=== PATIENT | female | born 1985 | race Caucasian/White ===

== ENCOUNTER 2018-11-21 18:26 | Outpatient (CLI) | payer OTHER, SELFPAY ==
[2018-11-21] MEDS: BETAMETHASONE 30 MG/5 ML MDV 12.5 MG IM (18:38)
== END 2018-11-21 18:44 | disposition home or self-care (01) ==
LOC: OB 02-05 15:10
PROVIDERS: PCP Obstetrics & Gynecology; Visit Provider Obstetrics & Gynecology
DX: Z34.93 Encounter for supervision of normal pregnancy, unspecified, third trimester (principal)
CPT/HCPCS: 96372; G0378; G0379; J0702

== ENCOUNTER 2019-01-12 08:50 | Emergency (ER) | payer OTHER, SELFPAY ==
[2019-01-12 09:01] VITALS: BP 122/95; PULSE 88; RESP 20; TEMP 36.7; O2SAT 98; BMI 30.7
--- NOTE | 2019-01-12 10:34 | ED.SKABFB ---
HPI - Skin/Abscess/Foreign Bdy General Chief complaint: Skin/Abscess/Foreign Body Stated complaint: CSECTION 5 WEEKS AGO,YELLOW DISCHARGE Time Seen by Provider: 01/12/19 10:15 Source: patient Mode of arrival: ambulatory Limitations: no limitations History of Present Illness HPI narrative: This is a pleasant 33-year-old female who is 5 weeks after a for triplets. Patient states that she has noticed a little bit of pain on the lateral edge of her incision on both sides but particularly on the left. She notices particularly when she urinates. She has a bowel movement she states she has very severe hemorrhoids so she is really notice if it hurts when she has a bowel movement. In the last several days she noticed that there seemed to be little spot that was open and when she pressed on it with some thick yellow fluid was not chunky but did not seem like thin clear fluid either. She did once again yesterday noticed a small amount of blood. Patient states that she has not had fevers, no chest pain or shortness of breath no nausea or vomiting no issues with urination and no issues with bowel movements other than hemorrhoids. She is otherwise healthy. Patient's triplets are all at home and she has 2 additional children at home. Related Data Home Medications Medication Instructions Recorded Confirmed PNV cmb#95-ferrous fumarate-FA 1 tab PO DAILY 01/12/19 01/12/19 [] Previous Rx's Medication Instructions Recorded cephalexin [Keflex] 500 mg PO QID 5 Days #20 cap 01/12/19 Allergies Allergy/AdvReac Type Severity Reaction Status Date / Time No Known Drug Allergies Allergy Verified 01/12/19 09:07 Review of Systems Review of Systems ROS Unobtainable: All systems reviewed & are unremarkable except as noted in HPI and below Constitutional Denies chills and Denies fever(s) Cardiovascular Denies chest pain and Denies dyspnea Respiratory Denies dyspnea Gastrointestinal Gastrointestinal: Denies abdominal pain, Denies change in bowel habits, Denies constipation, Denies diarrhea, Denies nausea, Denies vomiting and Reports other (hemorrhoids) Genitourinary Reports as per HPI, Reports abnormal vaginal bleeding (continued bleeding , not worsening.), Denies urinary frequency, Denies dysuria, Denies urinary hesitancy, Denies urinary urgency and Denies vaginal discharge Integumentary/Breasts Reports non-healing lesions, Denies unusual bruising and Reports other (drainage from incision) [facility] Surgical History (Updated 01/12/19 @ 10:47 by Ghazal Gillis DO) S/P (Chronic) Family History (Updated 04/27/16 @ 00:00 by Conversion Provider) Father Age: 62 Hypertension Grandfather Age: 89 Mental health problem Mother Age: 60 Hypertension Social History Smoking Status: Never smoker Family History (Updated 04/27/16 @ 00:00 by Conversion Provider) Father Age: 62 Hypertension Grandfather Age: 89 Mental health problem Mother Age: 60 Hypertension Social History Smoking Status: Never smoker Exam Narrative Exam Narrative: GENERAL: Alert and oriented x three, well-nourished, well-appearing female in no acute distress. HEENT: Head normocephalic, atraumatic, EOMI, pupils reactive, face symmetric, moist mucous membranes NECK: Supple, full range of motion CARDIOVASCULAR: Regular rate and rhythm without murmurs, rubs or gallops. RESPIRATORY: Breath sounds equal bilaterally, no wheezes rales or rhonchi. ABDOMEN: Soft, mildly tender in the left side of patient's incision, there is a punctate area of dehiscence with very localized erythema that is mild. There is no erythema extending elsewhere or along the rest of the incision. I am not able to express any fluid on exam. The dehiscence appears superficial. Normoactive bowel sounds all 4 quadrants. No guarding or rebound, rigidity, no mass : No CVA tenderness EXTREMITIES: Normal range of motion, no clubbing or edema. Neurovascularly intact NEUROLOGICAL: Cranial nerves II through XII grossly intact. Moving all extremities SKIN: Warm, dry, no petechiae, no rashes or lesions. Initial Vital Signs Initial Vital Signs: Vital Signs Temperature 98.0 F 01/12/19 09:01 Pulse Rate 88 01/12/19 09:01 Respiratory Rate 20 01/12/19 09:01 Blood Pressure 122/95 H 01/12/19 09:01 Pulse Oximetry 98 01/12/19 09:01 Course Orders Ordered: ED Orders 08/23/19 10:41 US pelvic limited Stat 01/12/19 11:02 Complete Blood Count AUTO DIFF Stat Comprehensive Metabolic Panel Stat Vital Signs - 8 hr 01/12/19 09:01 Temperature 98.0 F Pulse Rate 88 Respiratory Rate 20 Blood Pressure 122/95 H Pulse Oximetry 98 MDM - Skin/Abscess/Foreign Bdy Lab Data Attestation: I reviewed the patient's lab results. Result diagrams: 01/12/19 11:02 01/12/19 11:02 Lab Results 01/12/19 01/12/19 Range/Units 11:02 11:02 WBC 6.7 (4.5-11.0) X10^3/uL RBC 4.51 (4.0-5.2) X10^6/uL Hgb 11.9 L (12.0-16.0) g/dL Hct 35.9 L (36-46) % MCV 79.7 L (80-100) fL MCH 26.3 (26-34) PG MCHC 33.1 (30-36) % RDW 19.5 H (11.6-14.8) % Plt Count 235 (150-400) X10^3/uL Neut % (Auto) 65.3 (50-75) % Lymph % (Auto) 26.2 (25-40) % [place] % (Auto) 5.0 (3-14) % Eos % (Auto) 2.5 (2-4) % Baso % (Auto) 1.0 (0-2) % Neut # (Auto) 4400 (3437-4883) /uL Lymph # (Auto) 1700 (5541-3627) /uL [place] # (Auto) 300 (0-900) /uL Eos # (Auto) 200 (0-450) /uL Baso # (Auto) 100 (0-100) /uL Sodium 138 (137-145) mmol/L Potassium 4.3 (3.4-5.1) mmol/L Chloride 104 (98-107) mmol/L Carbon Dioxide 27 (22-32) mmol/L BUN 9 (7-17) mg/dL Creatinine 0.50 L (0.52-1.04) mg/dL Estimated GFR > 60.0 (>60) mL/min BUN/Creatinine Ratio 18.0 (6-22) Glucose 97 (70-100) mg/dL Calcium 9.1 (8.4-10.2) mg/dL Total Bilirubin 0.9 (0.2-1.3) mg/dL AST 19 (14-36) IU/L ALT 15 (9-52) IU/L Alkaline Phosphatase 104 (38-126) U/L Total Protein 7.4 (6.3-8.2) g/dL Albumin 4.1 (3.5-5.0) g/dL Globulin 3.3 (1.7-4.1) g/dL Albumin/Globulin Ratio 1.2 (1.0-2.8) Imaging Data pelvic US limited: Radiologist's impression: [address] [address] Ultrasound Report Signed Patient: Savage Orta#: [id number] : 1985Acct:[id number] Age/Sex: 33 / FDate of Service: 01/12/19 Loc: ED Accession Number: [id number] Procedure: US pelvic limited Ordering Provider: Ghazal Gillis D.O. PROCEDURE: US PELVIC LIMITED INDICATIONS: CONCERN FOR SEROMA VS. INFECTION OF CSECTION INCISION TECHNIQUE: Real-time transabdominal scanning was performed of the pelvic organs, with image documentation. COMPARISON: None. FINDINGS: Please note that the uterus and ovaries were not evaluated on this exam. Targeted sonographic imaging of the incision line of the lower anterior pelvis was performed. Mild focal subcutaneous edema is identified at the site of the incision with slight increased vascularity without a drainable fluid collection evident. No definable fluid collection is evident. IMPRESSION: Minimal edema at the site of the incision without a definite abscess evident. The need for follow up imaging may be determined clinically. Dictated by: Bradley Freeman M.D. on 01/12/2019 at 11:11 Approved by: Bradley Freeman M.D. on 01/12/2019 at 11:14 MDM Narrative Medical decision making narrative: Patient does not have any discrete fluid collections. She had has a small area of wound dehiscence. There is no signs of fluid collection on ultrasound We discussed wound care, she has follow-up on Tuesday which is in 2-4 days. To keep her appointment. If she feels like it is worsening at all to go ahead and start antibiotics and continue with current care regimen. If patient has worsening symptoms she is to return for re-evaluation. Discharge Plan Departure Patient Disposition: Home Clinical Impression: Dehiscence of section wound, Instructions: DI for Wound Dehiscence Activity Restrictions/Additional Instructions: Follow up with your OBGYN at your appointment on Tuesday. Continue to keep area clean dry and monitor for any signs of infection. Prescription for Keflex was sent to [facility] in [place]. You may start this medication in the next 24 hours if symptoms are worsening. Return to the emergency department for fevers greater than a 100.4 F, rapidly worsening redness, swelling increasing drainage, increasing pain in the abdomen, persistent vomiting, issues with bowel movements or urination or other new or concerning symptoms. Prescriptions: New cephalexin [Keflex] 500 mg capsule 500 mg PO QID 5 Days Qty: 20 RF: 0 No Action PNV cmb#95-ferrous fumarate-FA [] 28 mg iron- 800 mcg Tablet 1 tab PO DAILY RF: 0 Referrals: Preeti Mueller MD [Primary Care Provider] -
--- NOTE | 2019-01-12 10:41 | DI.US.S_ITS ---
PROCEDURE: US PELVIC LIMITED INDICATIONS: CONCERN FOR SEROMA VS. INFECTION OF CSECTION INCISION TECHNIQUE: Real-time transabdominal scanning was performed of the pelvic organs, with image documentation. COMPARISON: None. FINDINGS: Please note that the uterus and ovaries were not evaluated on this exam. Targeted sonographic imaging of the incision line of the lower anterior pelvis was performed. Mild focal subcutaneous edema is identified at the site of the incision with slight increased vascularity without a drainable fluid collection evident. No definable fluid collection is evident. IMPRESSION: Minimal edema at the site of the incision without a definite abscess evident. The need for follow up imaging may be determined clinically. Dictated by: Bradley Freeman M.D. on 01/12/2019 at 11:11 Approved by: Bradley Freeman M.D. on 01/12/2019 at 11:14
--- NOTE | 2019-01-12 10:45 | ED_ITS ---
HPI - Skin/Abscess/Foreign Bdy General Chief complaint: Skin/Abscess/Foreign Body Stated complaint: CSECTION 5 WEEKS AGO,YELLOW DISCHARGE Time Seen by Provider: 01/12/19 10:15 Source: patient Mode of arrival: ambulatory Limitations: no limitations History of Present Illness HPI narrative: This is a pleasant 33-year-old female who is 5 weeks after a for triplets. Patient states that she has noticed a little bit of pain on the lateral edge of her incision on both sides but particularly on the left. She notices particularly when she urinates. She has a bowel movement she states she has very severe hemorrhoids so she is really notice if it hurts when she has a bowel movement. In the last several days she noticed that there seemed to be little spot that was open and when she pressed on it with some thick yellow fluid was not chunky but did not seem like thin clear fluid either. She did once again yesterday noticed a small amount of blood. Patient states that she has not had fevers, no chest pain or shortness of breath no nausea or vomiting no issues with urination and no issues with bowel movements other than hemorrhoids. She is otherwise healthy. Patient's triplets are all at home and she has 2 additional children at home. Related Data Home Medications Medication Instructions Recorded Confirmed PNV cmb#95-ferrous fumarate-FA 1 tab PO DAILY 01/12/19 01/12/19 [] Previous Rx's Medication Instructions Recorded cephalexin [Keflex] 500 mg PO QID 5 Days #20 cap 01/12/19 Allergies Allergy/AdvReac Type Severity Reaction Status Date / Time No Known Drug Allergies Allergy Verified 01/12/19 09:07 Review of Systems Review of Systems ROS Unobtainable: All systems reviewed & are unremarkable except as noted in HPI and below Constitutional Denies chills and Denies fever(s) Cardiovascular Denies chest pain and Denies dyspnea Respiratory Denies dyspnea Gastrointestinal Gastrointestinal: Denies abdominal pain, Denies change in bowel habits, Denies constipation, Denies diarrhea, Denies nausea, Denies vomiting and Reports other (hemorrhoids) Genitourinary Reports as per HPI, Reports abnormal vaginal bleeding (continued bleeding , not worsening.), Denies urinary frequency, Denies dysuria, Denies urinary hesitancy, Denies urinary urgency and Denies vaginal discharge Integumentary/Breasts Reports non-healing lesions, Denies unusual bruising and Reports other (drainage from incision) [facility] Surgical History (Updated 01/12/19 @ 10:47 by Ghazal Gillis DO) S/P (Chronic) Family History (Updated 04/27/16 @ 00:00 by Conversion Provider) Father Age: 62 Hypertension Grandfather Age: 89 Mental health problem Mother Age: 60 Hypertension Social History Smoking Status: Never smoker Family History (Updated 04/27/16 @ 00:00 by Conversion Provider) Father Age: 62 Hypertension Grandfather Age: 89 Mental health problem Mother Age: 60 Hypertension Social History Smoking Status: Never smoker Exam Narrative Exam Narrative: GENERAL: Alert and oriented x three, well-nourished, well- appearing female in no acute distress. HEENT: Head normocephalic, atraumatic, EOMI, pupils reactive, face symmetric, moist mucous membranes NECK: Supple, full range of motion CARDIOVASCULAR: Regular rate and rhythm without murmurs, rubs or gallops. RESPIRATORY: Breath sounds equal bilaterally, no wheezes rales or rhonchi. ABDOMEN: Soft, mildly tender in the left side of patient's incision, there is a punctate area of dehiscence with very localized erythema that is mild. There is no erythema extending elsewhere or along the rest of the incision. I am not able to express any fluid on exam. The dehiscence appears superficial. Normoactive bowel sounds all 4 quadrants. No guarding or rebound, rigidity, no mass : No CVA tenderness EXTREMITIES: Normal range of motion, no clubbing or edema. Neurovascularly intact NEUROLOGICAL: Cranial nerves II through XII grossly intact. Moving all extremities SKIN: Warm, dry, no petechiae, no rashes or lesions. Initial Vital Signs Initial Vital Signs: Vital Signs Temperature 98.0 F 01/12/19 09:01 Pulse Rate 88 01/12/19 09:01 Respiratory Rate 20 01/12/19 09:01 Blood Pressure 122/95 H 01/12/19 09:01 Pulse Oximetry 98 01/12/19 09:01 Course Orders Ordered: ED Orders 08/23/19 10:41 US pelvic limited Stat 01/12/19 11:02 Complete Blood Count AUTO DIFF Stat Comprehensive Metabolic Panel Stat Vital Signs - 8 hr 01/12/19 09:01 Temperature 98.0 F Pulse Rate 88 Respiratory Rate 20 Blood Pressure 122/95 H Pulse Oximetry 98 MDM - Skin/Abscess/Foreign Bdy Lab Data Attestation: I reviewed the patient's lab results. Result diagrams: 01/12/19 11:02 01/12/19 11:02 Lab Results 01/12/19 01/12/19 Range/Units 11:02 11:02 WBC 6.7 (4.5-11.0) X10^3/uL RBC 4.51 (4.0-5.2) X10^6/uL Hgb 11.9 L (12.0-16.0) g/dL Hct 35.9 L (36-46) % MCV 79.7 L (80-100) fL MCH 26.3 (26-34) PG MCHC 33.1 (30-36) % RDW 19.5 H (11.6-14.8) % Plt Count 235 (150-400) X10^3/uL Neut % (Auto) 65.3 (50-75) % Lymph % (Auto) 26.2 (25-40) % [place] % (Auto) 5.0 (3-14) % Eos % (Auto) 2.5 (2-4) % Baso % (Auto) 1.0 (0-2) % Neut # (Auto) 4400 (8977-4194) /uL Lymph # (Auto) 1700 (9334-7235) /uL [place] # (Auto) 300 (0-900) /uL Eos # (Auto) 200 (0-450) /uL Baso # (Auto) 100 (0-100) /uL Sodium 138 (137-145) mmol/L Potassium 4.3 (3.4-5.1) mmol/L Chloride 104 (98-107) mmol/L Carbon Dioxide 27 (22-32) mmol/L BUN 9 (7-17) mg/dL Creatinine 0.50 L (0.52-1.04) mg/dL Estimated GFR > 60.0 (>60) mL/min BUN/Creatinine Ratio 18.0 (6-22) Glucose 97 (70-100) mg/dL Calcium 9.1 (8.4-10.2) mg/dL Total Bilirubin 0.9 (0.2-1.3) mg/dL AST 19 (14-36) IU/L ALT 15 (9-52) IU/L Alkaline Phosphatase 104 (38-126) U/L Total Protein 7.4 (6.3-8.2) g/dL Albumin 4.1 (3.5-5.0) g/dL Globulin 3.3 (1.7-4.1) g/dL Albumin/Globulin Ratio 1.2 (1.0-2.8) Imaging Data pelvic US limited: Radiologist's impression: [address] [address] Ultrasound Report Signed Patient: Savage Orta#: [id number] : 1985Acct:[id number] Age/Sex: 33 / FDate of Service: 01/12/19 Loc: ED Accession Number: [id number] Procedure: US pelvic limited Ordering Provider: Ghazal Gillis D.O. PROCEDURE: US PELVIC LIMITED INDICATIONS: CONCERN FOR SEROMA VS. INFECTION OF CSECTION INCISION TECHNIQUE: Real-time transabdominal scanning was performed of the pelvic organs, with image documentation. COMPARISON: None. FINDINGS: Please note that the uterus and ovaries were not evaluated on this exam. Targeted sonographic imaging of the incision line of the lower anterior pelvis was performed. Mild focal subcutaneous edema is identified at the site of the incision with slight increased vascularity without a drainable fluid collection evident. No definable fluid collection is evident. IMPRESSION: Minimal edema at the site of the incision without a definite abscess evident. The need for follow up imaging may be determined clinically. Dictated by: Bradley Freeman M.D. on 01/12/2019 at 11:11 Approved by: Bradley Freeman M.D. on 01/12/2019 at 11:14 MDM Narrative Medical decision making narrative: Patient does not have any discrete fluid collections. She had has a small area of wound dehiscence. There is no signs of fluid collection on ultrasound We discussed wound care, she has follow-up on Tuesday which is in 2-4 days. To keep her appointment. If she feels like it is worsening at all to go ahead and start antibiotics and continue with current care regimen. If patient has worsening symptoms she is to return for re- evaluation. Discharge Plan Departure Patient Disposition: Home Clinical Impression: Dehiscence of section wound, Instructions: DI for Wound Dehiscence Activity Restrictions/Additional Instructions: Follow up with your OBGYN at your appointment on Tuesday. Continue to keep area clean dry and monitor for any signs of infection. Prescription for Keflex was sent to [facility] in [place]. You may start this medication in the next 24 hours if symptoms are worsening. Return to the emergency department for fevers greater than a 100.4 F, rapidly worsening redness, swelling increasing drainage, increasing pain in the abdomen, persistent vomiting, issues with bowel movements or urination or other new or concerning symptoms. Prescriptions: New cephalexin [Keflex] 500 mg capsule 500 mg PO QID 5 Days Qty: 20 RF: 0 No Action PNV cmb#95-ferrous fumarate-FA [] 28 mg iron- 800 mcg Tablet 1 tab PO DAILY RF: 0 Referrals: Preeti Mueller MD [Primary Care Provider] -
[2019-01-12 11:13] LABS: Add Manual Diff / Slide Review NO; Basophils Absolute Auto 100 /uL (0-100); Eosinophils Absolute Auto 200 /uL (0-450); Eosinophils Percent Auto 2.5 % (2-4); Hematocrit 35.9 % (36-46); Hemoglobin 11.9 g/dL (12.0-16.0); Lymphocytes Absolute Auto 1700 /uL (1100-4500); Lymphocytes Percent Auto 26.2 % (25-40); Mean Corpuscular HGB Conc 33.1 % (30-36); Mean Corpuscular Hemoglobin 26.3 PG (26-34); Mean Corpuscular Volume 79.7 fL (80-100); Monocytes Absolute Auto 300 /uL (0-900); Neutrophils Absolute Auto 4400 /uL (1500-7000); Neutrophils Percent Auto 65.3 % (50-75); Platelet Count 235 X10^3/uL (150-400); Red Blood Cell Count 4.51 X10^6/uL (4.0-5.2); Red Cell Distribution Width 19.5 % (11.6-14.8); White Blood Cell Count 6.7 X10^3/uL (4.5-11.0)
[2019-01-12 11:22] LABS: Alanine Aminotransferase 15 IU/L (9-52); Albumin 4.1 g/dL (3.5-5.0); Albumin Globulin Ratio 1.2 (1.0-2.8); Alkaline Phosphatase 104 U/L (38-126); Aspartate Aminotransferase 19 IU/L (14-36); Bilirubin Total 0.9 mg/dL (0.2-1.3); Blood Urea Nitrogen 9 mg/dL (7-17); Calcium 9.1 mg/dL (8.4-10.2); Carbon Dioxide 27 mmol/L (22-32); Chloride 104 mmol/L (98-107); Estimated Glomerular Filt Rate > 60.0 mL/min (>60); Globulin 3.3 g/dL (1.7-4.1); Glucose 97 mg/dL (70-100); HEMOLYSIS < 15 (0-50); Potassium 4.3 mmol/L (3.4-5.1); Sodium 138 mmol/L (137-145); Total Protein 7.4 g/dL (6.3-8.2)
[2019-01-12 12:35] VITALS: BP 128/84; PULSE 81; RESP 16; O2SAT 98
== END 2019-01-12 12:35 | disposition home or self-care (01) ==
PROVIDERS: Emergency Provider Emergency Medicine; PCP Obstetrics & Gynecology
DX: O90.0 Disruption of cesarean delivery wound (principal)
CPT/HCPCS: 36415; 76857; 80053; 85025; 99282; 99284

== ENCOUNTER → 2019-04-04 11:47 | Outpatient (CLI) | payer OTHER, SELFPAY ==
--- NOTE | 2019-04-04 11:50 | DI.MRI.S_ITS ---
PROCEDURE: MR SHOULDER RT WO CON INDICATIONS: RIGHT shoulder pain TECHNIQUE: Noncontrast oblique coronal T2 fast spin echo with fat saturation, oblique sagittal T1 spin echo and T2 fast spin echo with fat saturation, axial T1 spin echo and T2 fast spin echo with fat saturation through the shoulder. COMPARISON: None. FINDINGS: Image quality: Excellent. Rotator cuff: There is tendinosis and low grade articular and bursal surface partial-thickness tear involving distal supraspinatus at its insertion the humeral head extending to the musculotendinous junction. Distal infraspinatus tendinosis and low-grade bursal surface partial-thickness tear is also seen. Distal subscapularis tendon is intact. Sagittal images demonstrate no significant muscle atrophy. Bones and bursae: No bone marrow contusions or fractures. Very mild osteophytic changes in acromioclavicular joint are seen. Capsule and soft tissues: In the absence of intra-articular contrast, the labrum and glenohumeral ligaments appear intact. The long head of the biceps tendon demonstrates normal location and morphology. The rotator interval appears normal, without fibrosis. The coracohumeral ligament is normal in thickness. IMPRESSION: 1. Very mild acromioclavicular joint osteoarthritic changes. 2. Tendinosis and low-grade articular and bursal surface partial-thickness tear involving distal supraspinatus extending to musculotendinous junction. Tendinosis and low-grade bursal surface partial-thickness tear involving distal infraspinatus. 3. No gross focal labral tear. Dictated by: Kevin Choi M.D. on 04/04/2019 at 15:08 Approved by: Kevin Choi M.D. on 04/04/2019 at 15:11
== END ==
PROVIDERS: Family Provider Family Medicine; PCP Family Medicine; Visit Provider Physician Assistant
DX: M25.511 Pain in right shoulder (principal); M75.111 Incomplete rotator cuff tear or rupture of right shoulder, not specified as traumatic
CPT/HCPCS: 73221

== ENCOUNTER 2020-06-23 09:26 | Emergency (ER) | payer BC, SELFPAY ==
[2020-06-23 09:39] VITALS: BP 115/74; PULSE 86; RESP 27; TEMP 36.6; O2SAT 99
--- NOTE | 2020-06-23 09:39 | DI.RAD.S_ITS ---
PROCEDURE: XR CHEST 2V INDICATIONS: shortness of breath TECHNIQUE: 2 views of the chest were acquired. COMPARISON: None. FINDINGS: Surgical changes and devices: None. Lungs and pleura: Mildly increased bronchovascular markings in hilar region are seen with mild bronchial wall thickening. No focal infiltrate. No pleural effusions or pneumothorax. Mediastinum: Mediastinal contours are normal. Heart size is normal. Bones and chest wall: No suspicious bony abnormalities. Soft tissues appear unremarkable. IMPRESSION: Finding is suggestive of reactive airway disease. No focal infiltrate. No pleural effusion or pneumothorax. Dictated by: Kevin Choi M.D. on 06/23/2020 at 9:11 Approved by: Kevin Choi M.D. on 06/23/2020 at 9:15
--- NOTE | 2020-06-23 09:56 | ED.GENADULT ---
HPI - General Adult General Chief complaint: Shortness of Breath/Dyspnea Stated complaint: hard time breathing/anxiety Time Seen by Provider: 06/23/20 09:42 Source: patient Mode of arrival: Ambulatory Limitations: no limitations History of Present Illness HPI narrative: Patient is a 34-year-old female. History of anxiety and panic attacks. Does not take any medications for these here for evaluation of 3 days of shortness of breath and chest pressure. She states she has had a consistently for the past 3 days. Nothing makes it better. Nothing makes it worse. She did try some meditation without any improvement. She states that there breathing feels like a lead up to a panic attack however she does not feel like this is a full-blown panic attack. It did start approximately 50 minutes after eating something on Tuesday. No lower extremity swelling. No recent travel. Not on control. Related Data Home Medications Medication Instructions Recorded Confirmed No Known Home Medications 06/23/20 06/23/20 Allergies Allergy/AdvReac Type Severity Reaction Status Date / Time No Known Drug Allergies Allergy Verified 06/23/20 09:46 Review of Systems Constitutional Constitutional: Denies fever(s) Cardiovascular Cardiovascular: Denies rapid heart rate, Denies lightheadedness and Reports dyspnea Comments: Chest pressure Respiratory Respiratory: Denies cough and Reports dyspnea Gastrointestinal Gastrointestinal: Denies abdominal pain, Denies nausea and Denies vomiting Genitourinary Genitourinary: Denies dysuria Genitourinary: Denies dysuria Musculoskeletal Musculoskeletal: Denies arthralgias and Denies myalgias Integumentary/Breasts Skin/Breast: Denies rash Neurologic Neurologic: Denies behavioral changes Psychiatric Psychiatric: Denies behavioral changes Hematologic/Lymphatic On Anticoagulants: No Allergic/Immunologic Allergic/Immunologic: Denies urticaria Patient History Medical History Anxiety Bleeding in early Surgical History (Updated 01/12/19 @ 10:47 by Ghazal Gillis DO) S/P Family History (Updated 04/27/16 @ 00:00 by Conversion Provider) Father Age: 64 Hypertension Grandfather Age: 91 Mental health problem Mother Age: 62 Hypertension Social History Smoking Status: Never smoker Smoking Status: Never smoker alcohol intake frequency: 0-2 drinks per day Substance Use Type: does not use Exam Initial Vital Signs Initial Vital Signs: Vital Signs Temperature 97.8 F 06/23/20 09:39 Pulse Rate 86 06/23/20 09:39 Respiratory Rate 27 H 06/23/20 09:39 Blood Pressure 115/74 06/23/20 09:39 Pulse Oximetry 99 06/23/20 09:39 Const General: cooperative and comfortable Limitations: mental status not altered HENMT Head: normal to inspection and normocephalic Resp Effort & Inspection: normal respiratory effort and tachypneic Auscultation: clear to auscultation bilaterally Cardio Rate: regular rate Rhythm: regular rhythm GI Inspection: non-distended Palpation: soft Skin Lesions: no lesions Rashes: no rashes Neuro General: patient alert, patient awake and patient oriented x3 Cognition: normal cognition Speech: speech normal Extrem General: normal to inspection and capillary refill normal Psych Appearance: grossly normal and well kempt Course Orders Ordered: ED Orders 06/23/20 09:39 XR chest 2V Stat EKG-12 Lead Stat Measure peak expiratory flow ONCE RT Consult Eval and Treat Now 06/23/20 10:40 Complete Blood Count AUTO DIFF Stat Comprehensive Metabolic Panel Stat D Dimer Stat Lactate (Lactic Acid) Stat NT-proBNP (BNP-Adult 18+) Stat Test Serum,Qual Stat 06/23/20 10:45 COVID19 Stat 06/23/20 11:20 CT angio chest PE protocol Stat Discontinued Medications Lorazepam (Lorazepam 0.5 Mg Tablet) 1 mg PO NOW ONE Stop: 06/23/20 10:21 Last Admin: 06/23/20 11:07 Dose: 1 mg Documented by: PAMELA Vital Signs Vital signs: Vital Signs - 8 hr 06/23/20 11:53 06/23/20 11:54 06/23/20 12:00 Pulse Rate 85 74 82 Blood Pressure 107/68 109/70 Pulse Oximetry 95 99 97 Medical Decision Making Lab Data Lab results reviewed: Yes I reviewed the patient's lab results. Result diagrams: 06/23/20 10:40 06/23/20 10:40 Labs: Lab Results 06/23/20 06/23/20 06/23/20 Range/Units 10:40 10:40 10:40 WBC 5.6 (4.5-11.0) X10^3/uL RBC 4.84 (4.0-5.2) X10^6/uL Hgb 12.8 (12.0-16.0) g/dL Hct 39.0 (36-46) % MCV 80.5 (80-100) fL MCH 26.4 (26-34) PG MCHC 32.8 (30-36) % RDW 14.9 H (11.6-14.8) % Plt Count 328 (150-400) X10^3/uL Neut % (Auto) 66.9 (50-75) % Lymph % (Auto) 24.5 L (25-40) % [place] % (Auto) 5.8 (3-14) % Eos % (Auto) 1.9 L (2-4) % Baso % (Auto) 0.9 (0-2) % Neut # (Auto) 3700 (6639-2312) /uL Lymph # (Auto) 1400 (9444-9305) /uL [place] # (Auto) 300 (0-900) /uL Eos # (Auto) 100 (0-450) /uL Baso # (Auto) 0 (0-100) /uL D-Dimer (<230) ng/mL Sodium 139 (137-145) mmol/L Potassium 3.7 (3.4-5.1) mmol/L Chloride 101 (98-107) mmol/L Carbon Dioxide 28 (22-32) mmol/L BUN 17 (7-17) mg/dL Creatinine 0.61 (0.52-1.04) mg/dL Estimated GFR > 60.0 (>60) mL/min BUN/Creatinine Ratio 27.9 H (6-22) Glucose 105 H (70-100) mg/dL Lactate 0.9 (0.7-2.1) mmol/L Calcium 9.9 (8.4-10.2) mg/dL Total Bilirubin 1.2 (0.2-1.3) mg/dL AST 33 (14-36) IU/L ALT 18 (<35) IU/L Alkaline Phosphatase 80 (38-126) U/L NT-Pro-B Natriuret Pep 23 (<125) pg/mL Total Protein 8.6 H (6.3-8.2) g/dL Albumin 4.9 (3.5-5.0) g/dL Globulin 3.7 (1.7-4.1) g/dL Albumin/Globulin Ratio 1.3 (1.0-2.8) Serum , Qual (Negative) SARS-CoV-2 (PCR) (Negative) 06/23/20 06/23/20 06/23/20 Range/Units 10:40 10:40 10:45 WBC (4.5-11.0) X10^3/uL RBC (4.0-5.2) X10^6/uL Hgb (12.0-16.0) g/dL Hct (36-46) % MCV (80-100) fL MCH (26-34) PG MCHC (30-36) % RDW (11.6-14.8) % Plt Count (150-400) X10^3/uL Neut % (Auto) (50-75) % Lymph % (Auto) (25-40) % [place] % (Auto) (3-14) % Eos % (Auto) (2-4) % Baso % (Auto) (0-2) % Neut # (Auto) (7185-0318) /uL Lymph # (Auto) (3596-0695) /uL [place] # (Auto) (0-900) /uL Eos # (Auto) (0-450) /uL Baso # (Auto) (0-100) /uL D-Dimer 254 H (<230) ng/mL Sodium (137-145) mmol/L Potassium (3.4-5.1) mmol/L Chloride (98-107) mmol/L Carbon Dioxide (22-32) mmol/L BUN (7-17) mg/dL Creatinine (0.52-1.04) mg/dL Estimated GFR (>60) mL/min BUN/Creatinine Ratio (6-22) Glucose (70-100) mg/dL Lactate (0.7-2.1) mmol/L Calcium (8.4-10.2) mg/dL Total Bilirubin (0.2-1.3) mg/dL AST (14-36) IU/L ALT (<35) IU/L Alkaline Phosphatase (38-126) U/L NT-Pro-B Natriuret Pep (<125) pg/mL Total Protein (6.3-8.2) g/dL Albumin (3.5-5.0) g/dL Globulin (1.7-4.1) g/dL Albumin/Globulin Ratio (1.0-2.8) Serum , Qual Negative (Negative) SARS-CoV-2 (PCR) Negative (Negative) Imaging Data Chest x-ray: Radiologist's Impression: [address] [id number] ReportSigned Patient: Savage Orta#: [id number]: 1985Acct:[id number]/Sex: 34 / FDate of Service: 06/23/20Loc: EDAccession Number: [id number] Procedure: XR chest 2V Ordering Provider: Radames Landis D.O. PROCEDURE: XR CHEST 2V INDICATIONS: shortness of breath TECHNIQUE: 2 views of the chest were acquired. COMPARISON: None. FINDINGS: Surgical changes and devices: None. Lungs and pleura: Mildly increased bronchovascular markings in hilar region are seen with mild bronchial wall thickening. No focal infiltrate. No pleural effusions or pneumothorax. Mediastinum: Mediastinal contours are normal. Heart size is normal. Bones and chest wall: No suspicious bony abnormalities. Soft tissues appear unremarkable. IMPRESSION: Finding is suggestive of reactive airway disease. No focal infiltrate. No pleural effusion or pneumothorax. Dictated by: Kevin Choi M.D. on 06/23/2020 at 9:11 Approved by: Kevin Choi M.D. on 06/23/2020 at 9:15 CT scan - chest: Radiologist's Impression: [address] [id number] Scan ReportSigned Patient: Savage Orta#: [id number]: 1985Acct:[id number]/Sex: 34 / FDate of Service: 06/23/20Loc: EDAccession Number: [id number] Procedure: CT angio chest PE protocol Ordering Provider: Radames Landis D.O. PROCEDURE: CT ANGIO CHEST PE PROTOCOL INDICATIONS: Chest pain, shortness of breath, tachycardia TECHNIQUE: After the administration of intravenous contrast, 2 mm thick sections acquired from the pulmonary apices to the posterior costophrenic angles. 3-dimensional maximum intensity projection (MIP) coronal and sagittal reformats were then acquired through the thorax. For radiation dose reduction, the following was used: automated exposure control, adjustment of mA and/or kV according to patient size. COMPARISON: None. FINDINGS: Image quality: Excellent. Pulmonary arteries: Pulmonary arteries are normal in size, and demonstrate no intraluminal filling defects to suggest central pulmonary embolism. Lungs and pleura: Lungs are clear. No pleural effusions or pneumothorax. Central and peripheral airways are patent. Mediastinum: Heart size is normal, without pericardial effusion. No mediastinal or hilar adenopathy. Thoracic aorta is normal in caliber and enhancement. Esophagus is normal in caliber, without hiatal hernia. Bones and chest wall: No suspicious bony lesions. Ribs and thoracic spine appear intact throughout. Thyroid is grossly unremarkable No axillary or supraclavicular adenopathy. Abdomen: Subcentimeter hepatic foci are statistically cysts or hemangiomas, although technically too small to characterize accurately and therefore nonspecific. IMPRESSION: No evidence of pulmonary embolism. No aortic dissection identified. No acute consolidation Dictated by: Severiano Snowden M.D. on 06/23/2020 at 12:09 Approved by: Severiano Snowden M.D. on 06/23/2020 at 12:11 ECG Data Attestation: I personally reviewed and interpreted this ECG as follows: Prior ECG tracings: not available for review Interpretation: Sinus rhythm Ventricular rate 81 Normal axis Normal QRS Normal QTC No ST T wave changes MDM Narrative Medical decision making narrative: Low suspicion that this is ACS. Her CT scan of the chest negative for pulmonary embolism. Does feel better after the Ativan. Suspect this is anxiety panic attack related. Low suspicion for GI. Did discuss this with the patient. She has had panic attacks in the past. Informed her she should talk with her primary doctor about potentially starting on medication which I feel we can wait until then and not started on the emergency department. She was given return precautions and follow-up instructions. She expressed understanding and agreement. Discharge Plan Departure Patient Disposition: Home Clinical Impression: Atypical chest pain, Anxiety Instructions: DI for Anxiety -- Adult Activity Restrictions/Additional Instructions: Recommend that you talk with your primary provider about potentially starting on anxiety medications. Also recommend you contact her for a follow-up. Return to the emergency department for any new or worsening symptoms Prescriptions: No Action No Known Home Medications RF: 0 Referrals: Dede Lambert PA-C [Primary Care Provider] -
[2020-06-23 10:53] LABS: Add Manual Diff / Slide Review NO; Basophils Absolute Auto 0 /uL (0-100); Basophils Percent Auto 0.9 % (0-2); Eosinophils Absolute Auto 100 /uL (0-450); Eosinophils Percent Auto 1.9 % (2-4); Hemoglobin 12.8 g/dL (12.0-16.0); Lymphocytes Absolute Auto 1400 /uL (1100-4500); Lymphocytes Percent Auto 24.5 % (25-40); Mean Corpuscular HGB Conc 32.8 % (30-36); Mean Corpuscular Hemoglobin 26.4 PG (26-34); Mean Corpuscular Volume 80.5 fL (80-100); Monocytes Absolute Auto 300 /uL (0-900); Monocytes Percent Auto 5.8 % (3-14); Neutrophils Absolute Auto 3700 /uL (1500-7000); Neutrophils Percent Auto 66.9 % (50-75); Platelet Count 328 X10^3/uL (150-400); Red Blood Cell Count 4.84 X10^6/uL (4.0-5.2); Red Cell Distribution Width 14.9 % (11.6-14.8); White Blood Cell Count 5.6 X10^3/uL (4.5-11.0)
[2020-06-23 11:06] LABS: D Dimer 254 ng/mL (<230)
[2020-06-23] MEDS: LORazepam 0.5 MG TABLET 1 MG PO (11:07)
[2020-06-23 11:09] LABS: Lactate (Lactic Acid) 0.9 mmol/L (0.7-2.1)
[2020-06-23 11:12] LABS: Alanine Aminotransferase 18 IU/L (<35); Albumin 4.9 g/dL (3.5-5.0); Albumin Globulin Ratio 1.3 (1.0-2.8); Alkaline Phosphatase 80 U/L (38-126); Aspartate Aminotransferase 33 IU/L (14-36); BUN Creatinine Ratio 27.9 (6-22); Bilirubin Total 1.2 mg/dL (0.2-1.3); Blood Urea Nitrogen 17 mg/dL (7-17); Calcium 9.9 mg/dL (8.4-10.2); Carbon Dioxide 28 mmol/L (22-32); Chloride 101 mmol/L (98-107); Estimated Glomerular Filt Rate > 60.0 mL/min (>60); Globulin 3.7 g/dL (1.7-4.1); Glucose 105 mg/dL (70-100); HEMOLYSIS < 15 (0-50); Potassium 3.7 mmol/L (3.4-5.1); Sodium 139 mmol/L (137-145); Total Protein 8.6 g/dL (6.3-8.2)
--- NOTE | 2020-06-23 11:15 | PC.NURSE ---
Reports shortness of breath and chest pressure started tuesday, and remains consistent. This morning upon awakening, it was worse, but is now back to what its been since tuesday. Loud, unexpected noises are the only thing that makes it worse.
[2020-06-23 11:18] LABS: NT-proBNP (BNP-Adult 18+) 23 pg/mL (<125)
--- NOTE | 2020-06-23 11:20 | DI.CT.S_ITS ---
PROCEDURE: CT ANGIO CHEST PE PROTOCOL INDICATIONS: Chest pain, shortness of breath, tachycardia TECHNIQUE: After the administration of intravenous contrast, 2 mm thick sections acquired from the pulmonary apices to the posterior costophrenic angles. 3-dimensional maximum intensity projection (MIP) coronal and sagittal reformats were then acquired through the thorax. For radiation dose reduction, the following was used: automated exposure control, adjustment of mA and/or kV according to patient size. COMPARISON: None. FINDINGS: Image quality: Excellent. Pulmonary arteries: Pulmonary arteries are normal in size, and demonstrate no intraluminal filling defects to suggest central pulmonary embolism. Lungs and pleura: Lungs are clear. No pleural effusions or pneumothorax. Central and peripheral airways are patent. Mediastinum: Heart size is normal, without pericardial effusion. No mediastinal or hilar adenopathy. Thoracic aorta is normal in caliber and enhancement. Esophagus is normal in caliber, without hiatal hernia. Bones and chest wall: No suspicious bony lesions. Ribs and thoracic spine appear intact throughout. Thyroid is grossly unremarkable No axillary or supraclavicular adenopathy. Abdomen: Subcentimeter hepatic foci are statistically cysts or hemangiomas, although technically too small to characterize accurately and therefore nonspecific. IMPRESSION: No evidence of pulmonary embolism. No aortic dissection identified. No acute consolidation Dictated by: Severiano Snowden M.D. on 06/23/2020 at 12:09 Approved by: Severiano Snowden M.D. on 06/23/2020 at 12:11
[2020-06-23 11:21] LABS: COVID19 -Nasal RAPID Negative (Negative)
[2020-06-23 11:27] LABS: Pregnancy Test Serum,Qual Negative (Negative)
[2020-06-23 11:53] VITALS: PULSE 85; O2SAT 95
[2020-06-23 11:54] VITALS: BP 107/68; PULSE 74; O2SAT 99
[2020-06-23 12:00] VITALS: BP 109/70; PULSE 82; O2SAT 97
== END 2020-06-23 12:36 | disposition home or self-care (01) ==
PROVIDERS: Emergency Provider Emergency Medicine; Family Provider Family Medicine; PCP Physician Assistant Medical
DX: R07.89 Other chest pain (principal); F41.9 Anxiety disorder, unspecified; R00.0 Tachycardia, unspecified; R06.02 Shortness of breath; Z20.822 Contact with and (suspected) exposure to COVID-19
CPT/HCPCS: 36415; 71046; 71275; 80053; 83605; 83880; 84703; 85025; 85379; 87635; 93005; 99284; C9803

== ENCOUNTER → 2020-08-14 14:40 | Outpatient (CLI) | payer BC, SELFPAY ==
--- NOTE | 2020-08-14 | DI.MRI.S_ITS ---
PROCEDURE: MR HAND LT WO CON INDICATIONS: left 2nd finger pain TECHNIQUE: Noncontrast coronal T1 spin echo and T2 fast spin echo with fat saturation, axial proton density fast spin echo and T2 fast spin echo with fat saturation, sagittal T1 spin echo and STIR through the hand and fingers. COMPARISON: None. FINDINGS: Image quality: Suboptimal secondary to inability to remove jewelry from ring finger, which partially obscures the hand. Bones: The bones are normally aligned, without marrow contusions or fractures. No intra-osseous lesions. Interphalangeal joint(s): The accessory and proper collateral ligaments appear intact. The volar plate demonstrates normal morphology. The extensor central slips appear intact on sagittal images. Metacarpophalangeal joint(s): The accessory and proper collateral ligaments appear intact, as well as the volar plate and adjacent deep transverse metacarpal ligaments. The sagittal bands of the extensor hooker appear normal. Extensor apparatus: The central slips insert normally on the middle phalangeal base. The conjoint and terminal tendons insert normally on the distal phalangeal bases. More proximal portions of the extensor tendons also appear normal. Flexor apparatus: The flexor digitorum superficialis and profundus tendons both appear intact. All annular and cruciform pulleys appear intact, however there is diffuse palmar subcutaneous soft tissue edema of the index finger. There is also mild tenosynovitis of the flexor tendons of the index finger. Soft tissues: Visualized muscles demonstrate normal bulk and internal signal. No intramuscular masses identified. No ganglion cysts. IMPRESSION: Index finger flexor tenosynovitis, and adjacent soft tissue edema. The flexor tendons of the index finger appear grossly intact although findings could reflect low-grade strain. Other infectious or inflammatory etiologies in the differential. Suboptimal evaluation secondary to metallic artifact from unremovable ring finger jewelry described above. Dictated by: Severiano Snowden M.D. on 08/14/2020 at 16:37 Approved by: Severiano Snowden M.D. on 08/14/2020 at 16:43
== END ==
PROVIDERS: Family Provider Family Medicine; PCP Physician Assistant Medical; Referring Provider Physician Assistant Medical; Visit Provider Physician Assistant Medical
DX: M79.645 Pain in left finger(s) (principal); M65.842 Other synovitis and tenosynovitis, left hand; R60.9 Edema, unspecified
CPT/HCPCS: 73218

== ENCOUNTER 2021-03-01 19:56 | Emergency (ER) | payer BC, SELFPAY ==
[2021-03-01 20:03] VITALS: PULSE 62; O2SAT 96
[2021-03-01 20:04] VITALS: BP 127/61; PULSE 62; O2SAT 100
[2021-03-01 20:06] VITALS: BP 127/61; PULSE 66; RESP 20; TEMP 36.6; O2SAT 100; BMI 33.9
--- NOTE | 2021-03-01 20:13 | ED.DIZZY ---
HPI - Dizziness General Chief Complaint: Neuro Symptoms/Deficit Stated Complaint: dizzy x45 min Time Seen by Provider: 03/01/21 20:01 Source: patient and family Mode of arrival: Ambulatory Limitations: physical limitation History of Present Illness HPI Narrative: 35-year-old female nonsmoker with noncontributory medical history presents with her in the chief complaint of a rather sudden onset significant dizziness that started about an hour and a half prior to her arrival. She states that it came on out of nowhere and she is unclear on exactly what she was doing when it happened but she had just had some ice cream. She did have some episodes of abnormal blood glucose with pregnancies so they checked her blood sugar at home and she was in the low 100s. She states that she is significantly more dizzy when she turns her head and improves with rest. She states she feels as if the room is spinning and denies a sense of syncope or lightheadedness. She states she has had no recent head injury or trauma. She denies any fever or chills. She has no neck pain, chest pain or palpitations. She denies any new medications or [id number] drugs but has been attempting a new diet which includes planned fasting but has not for the past few days. She recently had a normal menstrual cycle for her. She denies any numbness, tingling or weakness. She denies any blurred vision or trouble with speech. She has not recently been ill and denies any runny nose, sneezing or cough. She has no ear pain or drainage. Related Data Previous Rx's Medication Instructions Recorded meclizine 25 mg tablet 25 mg PO BID-TID PRN #14 tab 03/01/21 ondansetron 4 mg disintegrating 4 mg PO TID-QID PRN #10 tab 03/01/21 tablet Allergies Allergy/AdvReac Type Severity Reaction Status Date / Time No Known Drug Allergies Allergy Verified 06/23/20 09:46 Review of Systems Review of Systems Narrative: GENERAL: Denies chills, fatigue, malaise, fever, sweats. HEENT: Denies sinus pain, ear pain, sore throat, difficulty swallowing, dizziness. RESPIRATORY: Denies dyspnea, cough, wheezing, hemoptysis, sputum. CARDIOVASCULAR: Denies chest pain, palpitations, orthopnea, edema, GASTROINTESTINAL: Denies nausea, vomiting, abdominal pain, diarrhea, constipation, melena. : Denies dysuria, frequency, incontinence, hematuria, urinary retention. MUSCULOSKELETAL: denies weakness, joint pain, or bony pain SKIN: Denies rash, skin lesions, or other NEUROLOGIC: See HPI PSYCHIATRIC: No concerning psychosocial issues. 12 point review of systems is negative except for those stated above Patient History Medical History Anxiety Bleeding in early Surgical History S/P Family History Father Age: 64 Hypertension Grandfather Age: 91 Mental health problem Mother Age: 62 Hypertension Social History Smoking Status: Never smoker Smoking Status: Never smoker alcohol intake frequency: holidays/special occasions only Substance Use Type: does not use Exam Narrative Exam Narrative: GENERAL: [35] year old patient appears stated age. Well-developed patient, in mild distress. HEAD: Atraumatic. Normocephalic. EYES: Pupils equal round and reactive. Extraocular motions intact. No scleral icterus. No injection or drainage. Patient has horizontal nystagmus which is reproducible particularly when turning her head to the right, it lasts between 60 and 90 seconds at which point she feels much better and nystagmus improves. ENT: Nose without bleeding, purulent drainage. Throat without erythema, tonsillar hypertrophy or exudate. Airway patent. NECK: Trachea midline. Non tender CARDIOVASCULAR: Regular rate and rhythm without murmurs, gallops, or rubs. RESPIRATORY: Clear to auscultation. Breath sounds equal bilaterally. No wheezes, rales, or rhonchi. GASTROINTESTINAL: Abdomen soft, non-tender, nondistended. EXTREMITIES: No edema or joint tenderness. BACK: Nontender without deformity or crepitance. No flank tenderness. NEURO: AOx3. SKIN: No rash or erythema of visible areas Initial Vital Signs Initial Vital Signs: Vital Signs Pulse Rate 62 03/01/21 20:03 Pulse Oximetry 96 03/01/21 20:03 Course Course Course Narrative: Pérez's maneuver results in continued improvement in symptoms. Still some vertigo on DC, but greatly improved. Orders Ordered: ED Orders 03/01/21 20:14 EKG-12 Lead Stat 03/01/21 20:55 Complete Blood Count AUTO DIFF Stat Comprehensive Metabolic Panel Stat Magnesium Stat Discontinued Medications Lactated Ringer's (Lactated Ringers) 1,000 mls @ 1,000 mls/hr IV BOLUS ONE Stop: 03/01/21 21:13 Last Infusion: 03/01/21 22:29 Dose: 0 mls/hr Documented by: Admin: 03/01/21 20:31 Dose: 1,000 mls/hr Documented by: ISMAEL Meclizine HCl (Meclizine Hcl 12.5 Mg Tablet) 50 mg PO NOW ONE Stop: 03/01/21 20:15 Last Admin: 03/01/21 20:32 Dose: 50 mg Documented by: ISMAEL Meclizine HCl (Meclizine Hcl 12.5 Mg Tablet) 25 mg PO NOW ONE Stop: 03/01/21 22:09 Ondansetron HCl (Ondansetron 4 Mg/2 Ml Inj) 4 mg IV NOW ONE Stop: 03/01/21 20:15 Last Admin: 03/01/21 20:32 Dose: 4 mg Documented by: ISMAEL Ondansetron HCl (Ondansetron 4 Mg Odt Prepack) 1 bottle MISC SEEINSTR ONE Stop: 03/01/21 22:09 Vital Signs Vital signs: Vital Signs - 8 hr 03/01/21 20:03 03/01/21 20:04 03/01/21 20:06 Temperature 98 F Pulse Rate 62 62 66 Respiratory Rate 20 Blood Pressure 127/61 127/61 Pulse Oximetry 96 100 100 03/01/21 22:30 Temperature Pulse Rate 63 Respiratory Rate 18 Blood Pressure 120/72 Pulse Oximetry 98 MDM - Dizziness Lab Data Result diagrams: 03/01/21 20:55 03/01/21 20:55 Labs: Lab Results 03/01/21 03/01/21 Range/Units 20:55 20:55 WBC 5.2 (4.5-11.0) X10^3/uL RBC 4.32 (4.0-5.2) X10^6/uL Hgb 11.6 L (12.0-16.0) g/dL Hct 35.2 L (36-46) % MCV 81.5 (80-100) fL MCH 26.9 (26-34) PG MCHC 33.0 (30-36) % RDW 13.9 (11.6-14.8) % Plt Count 275 (150-400) X10^3/uL Neut % (Auto) 53.2 (50-75) % Lymph % (Auto) 36.9 (25-40) % Bertie % (Auto) 6.6 (3-14) % Eos % (Auto) 2.5 (2-4) % Baso % (Auto) 0.8 (0-2) % Neut # (Auto) 2800 (5397-5205) /uL Lymph # (Auto) 1900 (3824-0655) /uL Bertie # (Auto) 300 (0-900) /uL Eos # (Auto) 100 (0-450) /uL Baso # (Auto) 0 (0-100) /uL Sodium 142 (137-145) mmol/L Potassium 3.4 (3.4-5.1) mmol/L Chloride 107 (98-107) mmol/L Carbon Dioxide 27 (22-32) mmol/L BUN 12 (7-17) mg/dL Creatinine 0.69 (0.52-1.04) mg/dL Estimated GFR > 60.0 (>60) mL/min BUN/Creatinine Ratio 17.4 (6-22) Glucose 110 H (70-100) mg/dL Calcium 9.5 (8.4-10.2) mg/dL Magnesium 2.1 (1.6-2.3) mg/dL Total Bilirubin 0.5 (0.2-1.3) mg/dL AST 25 (14-36) IU/L ALT 16 (<35) IU/L Alkaline Phosphatase 56 (38-126) U/L Total Protein 7.4 (6.3-8.2) g/dL Albumin 4.3 (3.5-5.0) g/dL Globulin 3.1 (1.7-4.1) g/dL Albumin/Globulin Ratio 1.4 (1.0-2.8) Point of Care Testing Test Results Negative Urine Dip Bedside Urine Glucose Negative Bedside Urine Bilirubin - Negative Bedside Urine Ketone - Negative Urine Specific [place] 1.010 Bedside Urine Occult Blood - Negative Bedside Urine pH 6.0 Bedside Urine Protein - Negative Bedside Urine Urobilinogen - Negative Bedside Urine Nitrite - Negative Bedside Urine Leukocytes - Negative Esterase MDM Narrative Medical decision making narrative: Patient presents with severe, sudden onset, reproducible and fatigable vertigo in which she describes the room is spinning. When she turns her head right she has a fast which nystagmus to the right which lasts between 60 and 90 seconds before resolving. She has had no trauma or fever and is absence of other red flag findings. Symptoms, history, physical and responsive therapies is most likely a peripheral vertigo, specifically BPPV. Other diagnoses considered including stroke, anemia, labyrinthitis versus other. Return precautions given and questions answered to their apparent satisfaction Discharge Plan Departure Patient Disposition: Home Clinical Impression: Vertigo Benign paroxysmal positional vertigo Qualifiers: Laterality: right Qualified Code(s): H81.11 - Benign paroxysmal vertigo, right ear Instructions: Benign Paroxysmal Positional Vertigo Activity Restrictions/Additional Instructions: *You have been diagnosed with [vertigo, your history, physical exam and labs are all very reassuring and this is most likely right-sided benign paroxysmal positional vertigo *What to do: *Please continue to take your regular medications as directed. [ x] New medication prescriptions sent to your pharmacy: [ [facility]] [ ] New medication written as a paper prescription [ ] No new medications given *Please follow up with your primary care provider in 2-3 days, call for an appointment. Let them know you were seen in the Emergency Department and that we ask that you be seen in follow up. We will electronically transmit a record of today's note if your PCP is in our system *If you do not have a primary care provider please contact the [facility] Resource line at [phone]. They will ask some questions about your medical history and help get you set up with a doctor in the community. *Return to Emergency Department if you should have any new, worsening or concerning symptoms, such as [fever greater than 101 F, shaking chills, worsening pain, persistent vomiting or other bothersome symptoms] Prescriptions: New meclizine 25 mg tablet 25 mg PO BID-TID PRN (Reason: dizziness) Qty: 14 RF: 0 ondansetron 4 mg tablet,disintegrating 4 mg PO TID-QID PRN (Reason: nausea and vomiting) Qty: 10 RF: 0 Referrals: Baudilio Noble MD [Physician] - Dede Lambert PA-C [Primary Care Provider] -
[2021-03-01] MEDS: LACTATED RINGERS 1,000 ML 1000 ML IV (20:31)
[2021-03-01] MEDS: MECLIZINE HCL 12.5 MG TABLET 50 MG PO (20:32)
[2021-03-01] MEDS: ONDANSETRON 4 MG/2 ML INJ IV (20:32)
[2021-03-01 21:10] LABS: Add Manual Diff / Slide Review NO; Basophils Absolute Auto 0 /uL (0-100); Basophils Percent Auto 0.8 % (0-2); Eosinophils Absolute Auto 100 /uL (0-450); Eosinophils Percent Auto 2.5 % (2-4); Hematocrit 35.2 % (36-46); Hemoglobin 11.6 g/dL (12.0-16.0); Lymphocytes Absolute Auto 1900 /uL (1100-4500); Lymphocytes Percent Auto 36.9 % (25-40); Mean Corpuscular Hemoglobin 26.9 PG (26-34); Mean Corpuscular Volume 81.5 fL (80-100); Monocytes Absolute Auto 300 /uL (0-900); Monocytes Percent Auto 6.6 % (3-14); Neutrophils Absolute Auto 2800 /uL (1500-7000); Neutrophils Percent Auto 53.2 % (50-75); Platelet Count 275 X10^3/uL (150-400); Red Blood Cell Count 4.32 X10^6/uL (4.0-5.2); Red Cell Distribution Width 13.9 % (11.6-14.8); White Blood Cell Count 5.2 X10^3/uL (4.5-11.0)
[2021-03-01 21:18] LABS: Alanine Aminotransferase 16 IU/L (<35); Albumin 4.3 g/dL (3.5-5.0); Albumin Globulin Ratio 1.4 (1.0-2.8); Alkaline Phosphatase 56 U/L (38-126); Aspartate Aminotransferase 25 IU/L (14-36); BUN Creatinine Ratio 17.4 (6-22); Bilirubin Total 0.5 mg/dL (0.2-1.3); Blood Urea Nitrogen 12 mg/dL (7-17); Calcium 9.5 mg/dL (8.4-10.2); Carbon Dioxide 27 mmol/L (22-32); Chloride 107 mmol/L (98-107); Estimated Glomerular Filt Rate > 60.0 mL/min (>60); Globulin 3.1 g/dL (1.7-4.1); Glucose 110 mg/dL (70-100); HEMOLYSIS < 15 (0-50); Magnesium 2.1 mg/dL (1.6-2.3); Potassium 3.4 mmol/L (3.4-5.1); Sodium 142 mmol/L (137-145); Total Protein 7.4 g/dL (6.3-8.2)
[2021-03-01 22:30] VITALS: BP 120/72; PULSE 63; RESP 18; O2SAT 98
== END 2021-03-01 22:32 | disposition home or self-care (01) ==
PROVIDERS: Emergency Provider Emergency Medicine; Family Provider Family Medicine; PCP Physician Assistant Medical
DX: H81.11 Benign paroxysmal vertigo, right ear (principal)
CPT/HCPCS: 36415; 80053; 81003; 81025; 83735; 85025; 93005; 93010; 96361; 96374; 99284; J2405